=== PATIENT | female | born 1975 | race Two or more races ===

== ENCOUNTER 2017-11-23 01:51 | Inpatient (IN) | payer OTHER ==
[2017-11-23 02:36] LABS: Bilirubin Negative (Negative); Blood, Urine Negative (Negative); Clarity CLEAR (Clear); Glucose, Urine (Dipstick) Negative (Negative); Leukocyte Negative (Negative); Nitrite Negative (Negative); Protein, Urine (Dipstick) 30 mg/dL (Neg-Trace); Specific Gravity, Urine 1.028 (1.002-1.036); Urobilinogen 0.2 mg/dL (0.2-1.0)
[2017-11-23 02:39] LABS: Bacteria/HPF None Seen HPF (None Seen); Hyaline Casts/LPF 0-3 HYALINE CAST LPF (0-3 Hyaline); Pathc Cast-AUWi Flag 0.29 (0-2.49)
[2017-11-23 02:55] LABS: Pregnancy Test - Urine (BHCG) Negative (Negative); Pregu Control Background? CLEAR/WHITE (CLR/WHITE); Pregu Control Bar Appear? YES (CONTROL BAR); Specific Gravity 1.028 (1.002-1.036)
[2017-11-23 02:59] LABS: Hemoglobin 14.4 g/dL (12.0-16.0); Mean Corpuscular HGB CONC 33.7 g/dL (32.0-36.0); Mean Corpuscular Hemoglobin 30.7 pg (27.0-31.0); Mean Corpuscular Volume 91.1 fl (81.0-99.0); Mean Platelet Volume 7.6 fL (7.4-10.4); Platelet Count 274 thou/uL (130-400); RBC Distribution Width 13.2 % (11.5-14.5); Red Blood Cell (RBC) Count 4.68 mill/uL (4.20-5.40); White Blood Cell (WBC) Count 20.4 thou/uL (4.8-10.8)
[2017-11-23 03:11] LABS: Band 6 % (5-11); Eosinophils 1 % (0-10); Lymphocytes 35 % (21-51); MDiff Complete? YES; Monocytes 3 % (0-10); Neutrophil 46 % (42-75); PLT Morphology Comment Appears Adequate; RBC Morphology Normal; Reactive Lymphocytes 8 % (0-10)
[2017-11-23 03:15] LABS: ALT (SGPT) 14 U/L (8-55); AST (SGOT) 12 U/L (5-34); Albumin 4.2 g/dL (3.5-5.0); Alkaline Phosphatase 81 U/L (40-150); Anion Gap 12 mmol/L (10-20); BUN (Urea Nitrogen) 15 mg/dL (7.0-18.7); Bilirubin, Total 0.2 mg/dL (0.2-1.2); Calc. Creatinine Clearance 0 mL/min (70-130); Calcium 9.1 mg/dL (7.8-10.44); Carbon Dioxide 24 mmol/L (22-29); Chloride 104 mmol/L (98-107); Estimated GFR-MDRD 79; Globulin 2.7 g/dL (2.4-3.5); Glucose 105 mg/dL (70-105); Lipase 24 U/L (8-78); Potassium 3.5 mmol/L (3.5-5.1); Protein, Total 6.9 g/dL (6.0-8.3); Sodium 136 mmol/L (136-145)
[2017-11-23] MEDS ORDERED: Morphine 4 MG/ML VIAL ONE (03:27)
[2017-11-23] MEDS ORDERED: Pantoprazole 40 MG VIAL ONE (03:27)
[2017-11-23] MEDS ORDERED: Sodium Chloride 0.9% 1,000 ML IV SCH (06:16)
[2017-11-23] MEDS ORDERED: Ondansetron ODT 4 MG TAB SL PRN (06:16)
[2017-11-23] MEDS ORDERED: Ondansetron HCl/PF 4 MG/2 ML Vial IVP PRN ×2 (06:16→06:17)
[2017-11-23] MEDS ORDERED: Acetaminophen 325 MG TAB PO PRN (06:17)
--- NOTE | 2017-11-23 06:39 | HP ---
CHIEF COMPLAINT: Abdominal pain and diarrhea. HISTORY OF PRESENT ILLNESS: This is a 42-year-old young white female, morbidly obese. She has a kno history of irritable bowel syndrome, has been closely following up with GI. The patient has been having this chronic abdominal pain and bloating for almost a year. She also has a history of kidney stones was less than 7 mm in size and has been closely followed up by the urologist. The patient is having this pain of 7/10 intensity, located in the mid epigastrium for the last 2-3 days and today debra e noticed that there was caterina blood in the stool and that was the reason she came to the ER for furt her evaluation. The patient presented to the ER. She had a rectal examination done by the ER physic rosario who said the was stool was negative, guaiac was negative, but then she had another bowel movement in the ER which I did notice that she had caterina blood in the potty. As patient had elevated white count and a C. diff toxin was pending. Earlier in the week, 2 weeks ag o she also took a Z-SHIVANI course of 1 week. PAST MEDICAL HISTORY: 1. Irritable bowel syndrome. 2. Kidney stones. 3. Morbid obesity. PAST SURGICAL HISTORY: The patient had a cyst removed from her ovaries and she also had an ablation of her uterus for severe bleeding. SOCIAL HISTORY: The patient is a nonsmoker, but does not drink alcohol. No history of illicit drug use. FAMILY HISTORY: No significant family history of coronary artery disease. Her mother had breast can cer. ALLERGIES: No known drug allergies. HOME MEDICATIONS: No home medications were noted. REVIEW OF SYSTEMS: All 12 systems are reviewed with the patient thoroughly and found to be negative at this time. Constitutional: Weight loss or gain, ability to conduct usual activities. Skin: Rash, itching. Eyes: Double vision, pain. ENT/Mouth: Nose bleeding, neck stiffness, pain, tenderness. Cardiovascular: Palpitations, dyspnea on exertion, orthopnea. Respiratory: Shortness of breath, wheezing, cough, hemoptysis, fever or night sweats. Gastrointestinal: Poor appetite, abdominal pain, heartburn, nausea, vomiting, constipation, or diarrhea. Genitourinary: Urgency, frequency, dysuria, nocturia. Musculoskeletal: Pain, swelling. Neurologic/Psychiatric: Anxiety, depression. Allergy/Immunologic: Skin rash, bleeding tendency. PHYSICAL EXAMINATION: VITAL SIGNS: Blood pressures were 130/110, respiratory rate is 18, saturation 98%. GENERAL: The patient is moderately built and morbidly obese. She is alert and oriented x3. HEENT: Atraumatic, normocephalic. PERRLA. Extraocular movements are intact. Oral mucosa is pink an d moist. CARDIOVASCULAR: S1, S2 normal. No murmurs, rubs or gallops. LUNGS: Bilateral air entry was equal. No wheezing, no crackles. ABDOMEN: Distended, nontender, no guarding, no rebound tenderness. Bowel sounds were normal. MUSCULOSKELETAL: No calf tenderness. No pedal edema, no tenderness, no joint swelling. SKIN: No cyanosis, no erythema, no rash, no pallor. NEUROLOGIC: Cranial nerve examination II-XII intact. No focal deficits were noted. PSYCHIATRIC: No signs of radha was noted. NECK: No thyromegaly noted, no lymphadenopathy was noted. LABORATORY DATA: WBC 20.4, hemoglobin is 14.4, hematocrit 42.6, platelets 234. Sodium is 136, potas sium 3.5, chloride 104, bicarbonate is 24, BUN is 15, creatinine 0.8. ASSESSMENT AND PLAN: 1. Sepsis, unknown source. 2. Severe diarrhea, possible Clostridium difficile infection pending Clostridium difficile toxin ass ay. 3. Severe dehydration. 4. History of urinary tract stones. 5. Morbid obesity. PLAN: 1. Plan is to continue the patient on IV fluids at this time at 100 mL hour. We will closely monito r for any worsening dehydration. The patient has evidence of lower gastrointestinal bleed. We will consult Dr. Rick Lopez who the patient usually follows as outpatient. Her hemoglobin has bee n stable at 14. We will closely monitor for any further drop in the hemoglobin. We will keep the pa tient n.p.o. until the GI evaluation. 2. The patient has severe diarrhea with elevated white count. The patient has a history of taking o ral antibiotics a few weeks ago. So at this time, we will wait for the C. diff toxin assay and start the patient on treatment appropriate for Clostridium difficile infection. 3. The patient has history of urinary tract stones and she has been closely followed by Dr. [facility], at this time we will closely monitor. The patient does not have any abdominal pain related to t he renal colic. 4. Deep venous thrombosis prophylaxis, SCDs. Attending physician is Temo Mcdaniel M.D. I spent 75 minutes with this patient.
--- NOTE | 2017-11-23 08:59 | CT ---
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 Pt also reports blood in stool for past x3 days. States that on and thursday it appeared dark and tarry but tonight was bright red. Reports blo od in toilet and when she wipes. Last bm tonight. Pt also reports low back pain and chills. Denies fe belinda. Denies diarrhea. Denies pain or discomfort with urination. Pt has had a colonoscopy in the past, last one was "a while ago". She states that they did not find anything then but has been treated for ibs. TECHNIQUE: Axial computed tomography images of the abdomen and pelvis with intravenous contrast. Coronal reformatted images were created and reviewed. COMPARISON: No relevant prior studies available. FINDINGS: Lower thorax: No acute findings. ABDOMEN: Liver: Unremarkable. No mass. Gallbladder and bile ducts: Unremarkable. No calcified stones. No ductal dilation. Pancreas: Unremarkable. No mass. No ductal dilation. Spleen: Unremarkable. No splenomegaly. Adrenals: Unremarkable. No mass. Kidneys and ureters: Nonobstructive nephrolithiasis right kidney. Stomach and bowel: Fluid lumen of the colon is nondilated, compatible with diarrhea. No bowel wall th ickening or intestinal obstruction. Appendix: Normal appendix. PELVIS: Bladder: Unremarkable. No mass. Reproductive: 3.3 cm corpus luteum cyst of the right ovary. Indeterminate 1 cm low attenuation/cystic lesion in the uterus, nonspecific. ABDOMEN and PELVIS: Intraperitoneal space: Unremarkable. No free air. No significant fluid collection. Bones/joints: No acute fracture. No dislocation. Soft tissues: Unremarkable. Vasculature: Unremarkable. No abdominal aortic aneurysm. Lymph nodes: Unremarkable. No enlarged lymph nodes. IMPRESSION: 1. Fluid lumen of the colon is nondilated, compatible with diarrhea. 2. 3.3 cm corpus luteum cyst of the right ovary. 3. Indeterminate 1 cm low attenuation/cystic lesion in the uterus, nonspecific. Thank you for allowing us to participate in the care of your patient. Dictated and Authenticated by: Hair Rahman MD 11/23/2017 3:47 AM Central Time ([place] & [place]) FINAL REPORT EMERGENCY AFTER HOURS CT ABDOMEN AND PELVIS: Date: 11/23/17 INDICATION: History of generalized abdominal pain. FINDINGS: The small, enhancing lesions involving the lateral left hepatic lobe, as well as the anterior right h epatic lobe, are not appreciably changed from 2016, suspicious for possibly small hemangiomas. The la rgest is seen on image 20 of series 2, measuring 2.1 cm. There is a small focus of enhancement in seg ment 5 of right hepatic lobe, image 11, series 2. There is a small, bilobed suspected cyst within th e left hepatic lobe which appears similar. There is a 1.0 cm right adrenal adenoma, which is stable. There is a 3.0 mm nonobstructing calculus in the superior pole of the right kidney, which is stable. Pancreas, spleen, left adrenal gland, and left kidney appear within normal limits. As reported in the preliminary report, there is fluid density within the colon which can be seen with diarrheal states or mild colitis. The appendix is not definitely demonstrated. No definite free fluid is evident. Ther e is a suspected involuted cyst involving the right adnexa on image 57 of series 2 measuring 2.9 cm. No free fluid or enlarged lymph nodes are evident. IMPRESSION: 1. I agree with the preliminary report provided by Suzi that there is fluid density seen within the colon which can be seen with diarrheal states or mild colitis. 2. There is an involuting cyst within the right adnexa measuring up to 2.9 cm. A follow-up pelvic ul trasound in 6-8 weeks may be helpful to document resolution. 3. Small hyperenhancing lesions involving the left and right hepatic lobe, relatively stable since 2 016 and may reflect small hemangiomas. As a conservative measure, would recommend a [address] abdome n with and without contrast hemangioma protocol follow-up to document stability. 4. Stable left hepatic lobe cyst and right adrenal adenoma. 5. Stable right nephrolithiasis. CODE T. POS: [facility]
[2017-11-23 09:13] VITALS: BMI 36.0
[2017-11-23] MEDS: Famotidine/PF 20 mg/2ml Vial SLOW IVP SCH ×2 (09:33→20:59)
[2017-11-23] MEDS: Sodium Chloride 0.9% 1,000 ML IV SCH ×2 (09:36→15:36)
[2017-11-23] MEDS ORDERED: Haloperidol Lactate 5 MG/ML VIAL IM PRN (11:09)
[2017-11-23] MEDS ORDERED: Morphine 2 MG/ML SYRINGE SLOW IVP SCH (11:15)
[2017-11-23] MEDS: Nicotine 14 MG PATCH TOP SCH (11:24)
[2017-11-23] MEDS ORDERED: ISOVUE-370 76%-LOCM 1 ML ONE (13:08)
[2017-11-23] MEDS: HYDROcodone/Acetaminophen 5/325 mg Tablet PO PRN ×2 (16:12→21:15)
[2017-11-23] MEDS: Benzonatate 100 MG CAP PO SCH (20:58)
[2017-11-23] MEDS: busPIRone HCl 10 MG TAB PO SCH (20:59)
[2017-11-23] MEDS: Pregabalin 75 MG CAP PO SCH (20:59)
[2017-11-23] MEDS: traZODone HCl 50 MG TAB PO SCH (21:00)
[2017-11-24] MEDS: Sodium Chloride 0.9% 1,000 ML IV SCH ×3 (01:54→23:05)
[2017-11-24 05:26] LABS: #Basophils 0.1 thou/uL (0.0-0.2); #Eosinphils 0.7 thou/uL (0.0-0.7); #Lymphocytes 4.9 thou/uL (1.20-3.40); #Monocytes 0.6 thou/uL (0.11-0.59); #Neutrophils 5.1 thou/uL (1.40-6.50); %Eosinophils 6.1 % (0.0-10.0); %Lymphocytes 43.2 % (21.0-51.0); %Monocytes 5.2 % (0.0-10.0); %Neutrophils 44.5 % (42.0-75.0); Mean Corpuscular HGB CONC 32.6 g/dL (32.0-36.0); Mean Platelet Volume 7.5 fL (7.4-10.4); Platelet Count 279 thou/uL (130-400); RBC Distribution Width 13.4 % (11.5-14.5); Red Blood Cell (RBC) Count 4.66 mill/uL (4.20-5.40); White Blood Cell (WBC) Count 11.4 thou/uL (4.8-10.8)
[2017-11-24] MEDS: Benzonatate 100 MG CAP PO SCH ×2 (05:36→20:01)
[2017-11-24] MEDS: Fluticasone Propionate Nasal Spray 16 gm Bottle NASAL PRN ×2 (05:36→19:19)
[2017-11-24 05:44] LABS: Anion Gap 9 mmol/L (10-20); BUN (Urea Nitrogen) 7 mg/dL (7.0-18.7); Calc. Creatinine Clearance 166 mL/min (70-130); Calcium 8.5 mg/dL (7.8-10.44); Carbon Dioxide 21 mmol/L (22-29); Chloride 111 mmol/L (98-107); Estimated GFR-MDRD Greater than 90; Glucose 85 mg/dL (70-105); Potassium 3.9 mmol/L (3.5-5.1); Sodium 137 mmol/L (136-145)
--- NOTE | 2017-11-24 08:46 | CON ---
DATE OF CONSULTATION: 11/23/2017 REASON FOR CONSULTATION: Possible rectal bleeding, abdominal pain. HISTORY OF PRESENT ILLNESS: Ms. Thakkar is a 42-year-old female seen for about the last year or so. She presents with complaints of increased gas, bloating, and abdominal discomfort. She had an evalua tion with CAT scans and ultimately upper and lower endoscopy last year which were normal. She has be en maintained on Linzess and has done quite well. She presented to the hospital early this morning w ith some complaints of abdominal pain, diarrhea, and bleeding. In talking with her, this started las t . Four days prior to admission, she noted a little bit of blood in her stool and the liqui d in the bowl of water after she had a bowel movement. She also was having a little more cramping in the left lower abdomen, mainly complains of bloating. It appears about 2-3 days, she had some disco mfort 7/10 intensity in the midepigastrium but also in both right and left sides of the abdomen throu gh the emergency room and because she had some caterina blood in the stool, she was concerned about. Th ere has been no fever or chills. Apparently in the emergency room, she had a rectal examination whic h showed black negative stool. She had another stool with caterina blood in the bowl and was admitted. She did have elevated white count of 20,000. She was on Z-SHIVANI for respiratory pharyngeal symptoms b ut finished that. She states she has taken in the past with no problem. She had a CAT scan here of the abdomen and pelvis which showed no acute findings in the colon or small bowel. There is stable r ight nephrolithiasis, hepatic lobe cyst and right adrenal adenoma, which are chronic and unchanged fr om previous imaging in 2016. There was some bleeding cyst in the right adnexa. Presently, she feels fine. She states she got a little bit of morphine earlier. She is hungry. She states she thinks s he could eat. She is not nauseated. PAST MEDICAL HISTORY: Irritable bowel, kidney stones, morbid obesity. PAST SURGICAL HISTORY: Ovarian cyst in the past, uterine ablation for bleeding. SOCIAL HISTORY: Nonsmoker. Does drink alcohol at times. Does not use drugs. FAMILY HISTORY: Noncontributory. ALLERGIES: None known. HOME MEDICATIONS: She is on Linzess at home, trazodone, BuSpar, sertraline, Lyrica, methocarbamol, L atuda, diclofenac gel, cetirizine, Celebrex, albuterol. PRESENT MEDICATIONS: Pepcid, Tylenol, Flonase, Haldol p.r.n., hydrocodone p.r.n., nicotine patch, Zo shree. PHYSICAL EXAMINATION: GENERAL: Patient is resting comfortably in bed. She is in no distress. VITAL SIGNS: Temperature 98, pulse 101, blood pressure 109/75. LUNGS: Clear. CARDIAC: Heart regular, without clicks or murmurs. ABDOMEN: Soft, nontender. There is no rebound. There is no guarding. LABORATORY DATA: [place] [address] this morning, hemoglobin 14.4, platelet count 274. Comprehen sive metabolic profile was normal. ASSESSMENT AND PLAN: 1. Rectal bleeding, resolved. One worries about possibility of ischemic colitis or dehydration, but she does not have typical features of left-sided lower abdominal cramping. 2. Leukocytosis. No signs of sepsis or inflammatory response syndrome. 3. Diarrhea. She has been on antibiotics recently and C. diff should be checked. 4. Dehydration, go through rehydrating her, thus we will repeat CBC tomorrow. We will follow along with you.
[2017-11-24] MEDS: Pregabalin 75 MG CAP PO SCH ×2 (09:00→20:01)
[2017-11-24] MEDS: Lurasidone HCl 40 MG TABLET PO SCH (09:00)
[2017-11-24] MEDS: Famotidine/PF 20 mg/2ml Vial SLOW IVP SCH ×2 (09:02→20:05)
[2017-11-24] MEDS: busPIRone HCl 10 MG TAB PO SCH ×3 (09:02→20:01)
[2017-11-24] MEDS: HYDROcodone/Acetaminophen 5/325 mg Tablet PO PRN ×2 (09:19→21:00)
[2017-11-24] MEDS: Nicotine 14 MG PATCH TOP SCH ×2 (10:43→19:19)
--- NOTE | 2017-11-24 14:19 | PDOC.PN ---
- Subjective Encounter Start Date: 11/24/17 Encounter Start Time: 08:40 Pt seen for followup re: sepsis. Denies chest pain. Feels slightly better. Still has diarrhea, no blood in stool. - Objective Resuscitation Status: Resuscitation Status FULL:Full Resuscitation MAR Reviewed: Yes Vital Signs & Weight: Vital Signs (12 hours) Temp Pulse Resp BP BP Pulse Ox 11/24/17 11:29 98.4 F 83 18 124/85 11/24/17 08:51 98.8 F 83 18 117/79 94 L 11/24/17 08:00 98.8 F 83 18 94 L 11/24/17 04:59 98.8 F 83 20 127/76 95 Weight Admit Weight 210 lb 1.608 oz Weight 210 lb 1.608 oz I&O: 11/23/17 11/24/17 11/25/17 06:59 06:59 06:59 Intake Total 4350 Balance 4350 Result Diagrams: 11/24/17 04:58 11/24/17 04:58 Phys Exam - Physical Examination Obese HEENT: PERRLA, moist MMs, sclera anicteric, oral pharynx no lesions Neck: no nodes, no JVD, supple, full ROM Respiratory: no rales, no rhonchi, wheezing present Cardiovascular: RRR, no rub Gastrointestinal: soft, non-tender, no distention, positive bowel sounds Neurological: moves all 4 limbs Psychiatric: normal affect, A&O x 3 Dx/Plan (1) Sepsis Code(s): A41.9 - SEPSIS, UNSPECIFIED ORGANISM Status: Acute Comment: Improving (2) Diarrhea Code(s): R19.7 - DIARRHEA, UNSPECIFIED Status: Acute Comment: Continue IV fluids; GI following (3) Nephrolithiasis Status: Chronic Comment: stable (4) IBS (irritable bowel syndrome) Status: Chronic (5) Obesity Code(s): E66.9 - OBESITY, UNSPECIFIED Status: Chronic (6) Tobacco abuse Code(s): Z72.0 - TOBACCO USE Status: Chronic Comment: Chronic, continue nicotine replacement therapy - Plan * . Review of Systems - Review of Systems Constitutional: negative: fever, chills, sweats, weakness, malaise Respiratory: negative: Cough, Dry, Shortness of Breath, Hemoptysis, SOB with Excertion, Pleuritic Pain, Sputum, Wheezing Cardiovascular: negative: chest pain, palpitations, orthopnea, paroxysmal nocturnal dyspnea, edema, light headedness Gastrointestinal: Diarrhea. negative: Nausea, Vomiting, Abdominal Pain, Constipation, Melena, Hematochezia Genitourinary: negative: Dysuria, Frequency, Incontinence, Hematuria, Retention - Medications/Allergies Allergies/Adverse Reactions: Allergies Allergy/AdvReac Type Severity Reaction Status Date / Time No Known Allergies Allergy Unverified 11/23/17 06:16 Medications: Current Medications Acetaminophen (Tylenol) 650 mg PO Q4H PRN PRN Reason: Headache/Fever or Pain Hydrocodone Bitart/Acetaminophen ([place] 5/325) 1 tab PO Q4H PRN PRN Reason: Moderate Pain (4-6) Last Admin: 11/24/17 09:19 Dose: 1 tab Albuterol Sulfate (Proventil Hfa) 2 puff INH Q4H PRN PRN Reason: Cough Benzonatate (Tessalon) [address] [facility] Last Admin: 11/24/17 05:36 Dose: 100 mg Buspirone HCl (Buspar) [address] [facility] Last Admin: 11/24/17 09:02 Dose: 10 mg Famotidine (Pepcid) [address]P Q12[address] [facility] Last Admin: 11/24/17 09:02 Dose: 20 mg Fluticasone Propionate (Flonase Nasal [place]) 0 gm NASAL BIDPRN PRN PRN Reason: Allergies Last Admin: 11/24/17 05:36 Dose: 2 spr Haloperidol Lactate (Haldol) 5 mg IM Q6H PRN PRN Reason: PSYCHOSIS Sodium Chloride (Normal Saline 0.9%) 1,000 mls @ 100 mls/hr IV .Q10H [facility] Last Admin: 11/24/17 12:49 Dose: 1,000 mls Lurasidone HCl (Latuda) [address] [facility] Last Admin: 11/24/17 09:00 Dose: 40 mg Nicotine (Nicoderm Patch) [address] [facility] Last Admin: 11/24/17 10:43 Dose: 14 mg Ondansetron HCl (Zofran) 4 mg IVP Q6H PRN PRN Reason: Nausea/Vomiting Pregabalin (Lyrica) [address] [facility] Last Admin: 11/24/17 09:00 Dose: 75 mg Sertraline HCl (Zoloft) [address] [facility] Last Admin: 11/24/17 09:00 Dose: 50 mg Sodium Chloride (Flush - Normal Saline) [address] [facility] Last Admin: 11/24/17 09:21 Dose: Not Given Sodium Chloride (Flush - Normal Saline) 10 ml IVF PRN PRN PRN Reason: Saline Flush Trazodone HCl (Desyrel) [address] [facility] Last Admin: 11/23/17 21:00 Dose: 200 mg
[2017-11-24] MEDS: PROVENTIL INHALER 6.7 G (200 INHALATIONS) INH PRN (19:10)
[2017-11-24] MEDS: traZODone HCl 50 MG TAB PO SCH (20:05)
--- NOTE | 2017-11-24 20:53 | PRG ---
DATE OF SERVICE: 11/24/2017 SUBJECTIVE: Ms. Thakkar is eating a regular diet. She feels much better. She feels like gas in her stomach, but does not have any bleeding. She denies any fever or chills. She wants to eat regular f ood. OBJECTIVE: VITAL SIGNS: Temperature is 98, pulse 80, blood pressure 136/87. ABDOMEN: Protuberant, soft, nontender. There is no rebound. There is no guarding. LABORATORY STUDIES: White count is down from 20,000 to 11.4, hemoglobin 14.0, platelet counts 279. Differential is normal. BUN and creatinine are 7 and 0.67. ASSESSMENT: 1. Gastritis, resolved. Advance diet as tolerated. 2. Rectal bleeding, resolved, stable hemoglobin, no signs of significant GI blood loss. PLAN: Advance diet. She can go home tomorrow on a lactose-free low residue diet.
[2017-11-25] MEDS: Fluticasone Propionate Nasal Spray 16 gm Bottle NASAL PRN (01:28)
[2017-11-25 07:57] VITALS: BP 128/85; TEMP 99.1
[2017-11-25] MEDS: busPIRone HCl 10 MG TAB PO SCH (08:13)
[2017-11-25] MEDS: Famotidine/PF 20 mg/2ml Vial SLOW IVP SCH (08:13)
[2017-11-25] MEDS: Benzonatate 100 MG CAP PO SCH (08:13)
[2017-11-25] MEDS: Pregabalin 75 MG CAP PO SCH (08:14)
[2017-11-25] MEDS: Sodium Chloride 0.9% 1,000 ML IV SCH (08:14)
[2017-11-25] MEDS: HYDROcodone/Acetaminophen 5/325 mg Tablet PO PRN (08:20)
[2017-11-25] MEDS: Lurasidone HCl 40 MG TABLET PO SCH (08:25)
[2017-11-25 08:59] LABS: #Basophils 0.1 thou/uL (0.0-0.2); #Eosinphils 0.5 thou/uL (0.0-0.7); #Monocytes 0.6 thou/uL (0.11-0.59); #Neutrophils 7.8 thou/uL (1.40-6.50); %Basophils 0.5 % (0.0-1.0); %Eosinophils 4.3 % (0.0-10.0); %Lymphocytes 25.3 % (21.0-51.0); %Monocytes 5.2 % (0.0-10.0); %Neutrophils 64.8 % (42.0-75.0); Hemoglobin 14.1 g/dL (12.0-16.0); Mean Corpuscular HGB CONC 32.9 g/dL (32.0-36.0); Mean Corpuscular Hemoglobin 30.8 pg (27.0-31.0); Mean Corpuscular Volume 93.7 fl (81.0-99.0); Mean Platelet Volume 7.9 fL (7.4-10.4); Platelet Count 267 thou/uL (130-400); RBC Distribution Width 13.2 % (11.5-14.5); Red Blood Cell (RBC) Count 4.57 mill/uL (4.20-5.40)
[2017-11-25 09:12] LABS: Anion Gap 9 mmol/L (10-20); BUN (Urea Nitrogen) 8 mg/dL (7.0-18.7); Calc. Creatinine Clearance 157 mL/min (70-130); Carbon Dioxide 21 mmol/L (22-29); Chloride 108 mmol/L (98-107); Estimated GFR-MDRD Greater than 90; Glucose 89 mg/dL (70-105); Potassium 4.1 mmol/L (3.5-5.1); Sodium 134 mmol/L (136-145)
[2017-11-25] MEDS: PROVENTIL INHALER 6.7 G (200 INHALATIONS) INH PRN (09:18)
[2017-11-25] MEDS: Nicotine 14 MG PATCH TOP SCH (10:47)
[2017-11-25] MEDS ORDERED: Acetaminophen/Codeine 30-300mg Tablet PO PRN (10:50)
--- NOTE | 2017-11-25 11:11 | DIS ---
DATE OF ADMISSION: 11/23/2017 DATE OF DISCHARGE: 11/25/2017 PRIMARY CARE PHYSICIAN: Peyton Richards M.D. ADMITTING DIAGNOSES: 1. Diarrhea. 2. Rectal bleeding, resolved. 3. Dehydration. CONSULTATION DURING THIS HOSPITALIZATION: Gastroenterology, Dr. Lopez. CONDITION OF PATIENT ON THE DAY OF DISCHARGE: Stable. I assessed Ms. Thakkar on the day of discharge . She denies any chest pain or shortness of breath. Diarrhea is better. She denies any blood in st ool. PHYSICAL EXAMINATION: VITAL SIGNS: Stable. HEART: S1 and S2 are heard, regular. LUNGS: Clear to auscultation bilaterally. DISCHARGE MEDICATIONS: Tylenol #3 one tablet every 6 hours as needed, prescription for 15 tablets pr ovided, ProAir HFA 2 puffs every 4 hours as needed, buspirone 10 mg 3 times a day, cetirizine 10 mg d aily as needed, Bentyl 1 tablet 4 times a day as needed, Pepcid 20 mg 2 times a day, Linzess 2 capsul es daily, Latuda 40 mg daily, methocarbamol 1000 mg 2 times a day as needed, Nicoderm CQ 14 mg patch daily, Lyrica 75 mg 2 times a day, sertraline 50 mg daily, trazodone 100-200 mg at bedtime, and Dayna ivan 100 mg 3 times a day as needed. HOSPITAL COURSE: Ms. Thakkar is a pleasant 42-year-old lady who was admitted to [facility] for complaint of rectal bleeding as well as diarrhea. Her rectal bleeding resolved. St ool studies were negative for Clostridium difficile toxin. She was seen by Gastroenterology Service. She received intravenous fluids for dehydration. She improved clinically and is being discharged h [facility] in a stable condition. She is being discharged home on lactose free low residue diet. She is ad vised to follow up with her primary care physician in 3-5 days. LABORATORY DATA: On the day of discharge, she has sodium of 134, potassium 4.1, carbon dioxide 21, c reatinine 0.71, white count 12,000, hemoglobin 14.1, and platelet count 267,000. Many thanks for allowing me to participate in your patient's care. Please feel free to contact me wi th any questions or concerns. DISCHARGE DESTINATION: Home. TOTAL AMOUNT OF TIME SPENT COORDINATING THIS DISCHARGE: 33 minutes.
[2017-11-25] MEDS ORDERED: Famotidine 20 MG TAB PO SCH (21:00)
== END 2017-11-25 13:42 | disposition home or self-care (01) | DRG 392 ==
LOC: ERS 01:51 → T4-B 04:00
PROVIDERS: ADMIT Family Medicine; ATTEND Family Medicine
DX: K58.0 Irritable bowel syndrome with diarrhea (principal); E66.01 Morbid (severe) obesity due to excess calories; K62.5 Hemorrhage of anus and rectum; E86.0 Dehydration; K29.70 Gastritis, unspecified, without bleeding; Z68.36 Body mass index [BMI] 36.0-36.9, adult; D72.829 Elevated white blood cell count, unspecified; F17.210 Nicotine dependence, cigarettes, uncomplicated; N20.0 Calculus of kidney
CPT/HCPCS: 36415; 74177; 80048; 80053; 81003; 81015; 81025; 82274; 83605; 83690; 84145; 85025; 87324; 87449; 96361; 96374; 96375; 99406; A4216; C9113; J2270; S0028

== ENCOUNTER 2018-01-01 22:07 | Emergency (ER) | payer OTHER ==
[~2018-01-01 22:07] MED LIST: ISOVUE-370 76%-LOCM 1 ML ONE
[2018-01-01 22:47] LABS: #Basophils 0.1 thou/uL (0.0-0.2); #Eosinphils 0.4 thou/uL (0.0-0.7); #Lymphocytes 4.9 thou/uL (1.20-3.40); #Monocytes 0.9 thou/uL (0.11-0.59); #Neutrophils 8.6 thou/uL (1.40-6.50); %Basophils 0.7 % (0.0-1.0); %Eosinophils 2.7 % (0.0-10.0); %Lymphocytes 32.9 % (21.0-51.0); %Monocytes 6.1 % (0.0-10.0); %Neutrophils 57.6 % (42.0-75.0); Mean Corpuscular HGB CONC 34.7 g/dL (32.0-36.0); Mean Corpuscular Hemoglobin 31.8 pg (27.0-31.0); Mean Corpuscular Volume 91.5 fl (81.0-99.0); Mean Platelet Volume 7.4 fL (7.4-10.4); Platelet Count 279 thou/uL (130-400); Red Blood Cell (RBC) Count 4.73 mill/uL (4.20-5.40)
[2018-01-01 23:07] LABS: ALT (SGPT) 12 U/L (8-55); AST (SGOT) 12 U/L (5-34); Albumin 4.2 g/dL (3.5-5.0); Alkaline Phosphatase 86 U/L (40-150); Anion Gap 12 mmol/L (10-20); BUN (Urea Nitrogen) 17 mg/dL (7.0-18.7); Bilirubin, Total 0.3 mg/dL (0.2-1.2); Calc. Creatinine Clearance 0 mL/min (70-130); Calcium 9.3 mg/dL (7.8-10.44); Carbon Dioxide 27 mmol/L (22-29); Chloride 105 mmol/L (98-107); Estimated GFR-MDRD 85; Globulin 2.8 g/dL (2.4-3.5); Glucose 85 mg/dL (70-105); Lipase 14 U/L (8-78); Magnesium 2.1 mg/dL (1.6-2.6); Potassium 4.1 mmol/L (3.5-5.1); Sodium 140 mmol/L (136-145)
--- NOTE | 2018-01-01 23:31 | CT ---
ABDOMEN AND PELVIC CT SCAN WITH IV CONTRAST: 01/01/18 HISTORY: 42-year-old female with history of abdominal pain, particularly right lower quadrant pain. COMPARISON: 11/23/17. The lung bases are clear. There are two focal areas in the liver which show some nodular enhancement as well as a hypodense area in the left lobe. These are stable from prior studies. The gallbladder, p ancreas, spleen, adrenal glands are unremarkable. Nonobstructing right renal calculus. Nonobstructing small bilateral renal calculi. No evidence for acute obstruction. Normal appearing appendix. No b owel obstruction, abscess, adenopathy or abnormal fluid collection. Unremarkable uterus and adnexal r egions. IMPRESSION: Nonobstructing very small bilateral renal calculi. No evidence for obstruction. Normal appearing a ppendix. Multiple abnormal areas of attenuation within the liver which are stable from prior studies. No significant acute process in the abdomen or pelvis. POS: [facility]
[2018-01-01 23:44] LABS: Bilirubin Negative (Negative); Blood, Urine Negative (Negative); Clarity CLEAR (Clear); Glucose, Urine (Dipstick) Negative (Negative); Leukocyte Negative (Negative); Nitrite Negative (Negative); Protein, Urine (Dipstick) Negative (Neg-Trace); Specific Gravity, Urine 1.014 (1.002-1.036); Urobilinogen 0.2 mg/dL (0.2-1.0); pH, Urine 6.5 (5.0-9.0)
[2018-01-01 23:46] LABS: Pregnancy Test - Urine (BHCG) Negative (Negative); Pregu Control Background? CLEAR/WHITE (CLR/WHITE); Pregu Control Bar Appear? YES (CONTROL BAR); Specific Gravity 1.014 (1.002-1.036)
[2018-01-02] MEDS ORDERED: Ketorolac Tromethamine 30 MG/ML VIAL ONE (00:10)
[2018-01-02] MEDS ORDERED: Dicyclomine 20 MG TAB ONE (00:45)
== END 2018-01-02 01:50 | disposition home or self-care (01) ==
LOC: ERS 22:07
DX: R10.31 Right lower quadrant pain (principal); F41.9 Anxiety disorder, unspecified; F31.9 Bipolar disorder, unspecified; F17.210 Nicotine dependence, cigarettes, uncomplicated; Z79.899 Other long term (current) drug therapy
CPT/HCPCS: 36415; 74177; 80053; 81003; 81025; 83690; 83735; 85025; 96361; 96374; J1885

== ENCOUNTER 2018-11-13 20:00 | Emergency (ER) | payer OTHER ==
[2018-11-13 21:05] LABS: Bilirubin Small (Negative); Blood, Urine Negative (Negative); Clarity CLEAR (Clear); Glucose, Urine (Dipstick) Negative (Negative); Leukocyte Negative (Negative); Nitrite Negative (Negative); Protein, Urine (Dipstick) Trace mg/dL (Neg-Trace); Specific Gravity, Urine 1.028 (1.002-1.036)
[2018-11-13] MEDS ORDERED: Ibuprofen 800 MG TAB ONE (21:10)
[2018-11-13 21:12] LABS: Pregnancy Test - Urine (BHCG) Negative (Negative)
[2018-11-13 21:13] LABS: Pregu Control Background? CLEAR/WHITE (CLR/WHITE); Pregu Control Bar Appear? YES (CONTROL BAR); Specific Gravity 1.027 (1.002-1.036)
[2018-11-17 00:46] LABS: Chlamydia by PCR Not Detected (NotDetected); GC by PCR Not Detected (NotDetected)
== END 2018-11-13 21:21 | disposition home or self-care (01) ==
LOC: ERS 20:00
DX: N89.8 Other specified noninflammatory disorders of vagina (principal); K03.81 Cracked tooth; K02.9 Dental caries, unspecified; M19.90 Unspecified osteoarthritis, unspecified site; F31.9 Bipolar disorder, unspecified; F41.9 Anxiety disorder, unspecified; F17.210 Nicotine dependence, cigarettes, uncomplicated; Z71.6 Tobacco abuse counseling; Z79.51 Long term (current) use of inhaled steroids; Z79.899 Other long term (current) drug therapy
CPT/HCPCS: 81003; 81025; 87086; 87480; 87491; 87510; 87591; 87660; 99406

== ENCOUNTER 2018-12-16 18:41 | Emergency (ER) | payer OTHER ==
[2018-12-16] MEDS ORDERED: Morphine 4 MG/ML VIAL ONE (19:40)
[2018-12-16] MEDS ORDERED: Ketorolac Tromethamine 30 MG/ML VIAL ONE (19:40)
--- NOTE | 2018-12-16 20:14 | RAD ---
LUMBAR SPINE SERIES THREE VIEWS: History: Back and left leg pain. History of fibromyalgia. FINDINGS: Vertebral bodies are normal in height. Minimal osteophyte changes are seen. Disc spaces are fairly we ll preserved. Pedicles are intact. No spondylolisthesis. IMPRESSION: No acute findings. POS: [facility]
[2018-12-16 20:26] LABS: Anion Gap 13 mmol/L (10-20); BUN (Urea Nitrogen) 11 mg/dL (7.0-18.7); Calc. Creatinine Clearance 0 mL/min (70-130); Calcium 8.8 mg/dL (7.8-10.44); Carbon Dioxide 22 mmol/L (22-29); Chloride 108 mmol/L (98-107); Estimated GFR-MDRD 81; Glucose 89 mg/dL (70-105); Sodium 139 mmol/L (136-145)
[2018-12-16] MEDS ORDERED: Dexamethasone 4 mg/ml Vial ONE (20:43)
--- NOTE | 2018-12-16 21:26 | CT ---
EXAM: CT angiogram of the chest including 3-D rendering: HISTORY: Chest pain COMPARISON: None FINDINGS: There is adequate opacification of the pulmonary arteries. No evidence for aortic aneurysm or dissection. No convincing CT evidence for acute pulmonary embolism. No significant acute pulmonary parenchymal process. No evidence for mediastinal mass or adenopathy. No no evidence for pleural or pericardial effusion. Nodular enlargement of the right adrenal gland with a 1.4 cm diameter focal nodule, indeterminate, if that is a strong clinical concern, follow-up nonemergent CT scan with adrenal mass protocol. Left lobe liver cyst. IMPRESSION: No convincing CT evidence for acute pulmonary embolism. Nodular enlargement of the right adrenal gland as above. Left lobe of liver cyst.
== END 2018-12-16 21:50 | disposition home or self-care (01) ==
LOC: ERS 18:41
DX: M79.7 Fibromyalgia (principal); F17.210 Nicotine dependence, cigarettes, uncomplicated; F41.9 Anxiety disorder, unspecified
CPT/HCPCS: 36415; 71275; 72100; 80048; 85379; 93005; 96374; 96375; J1100; J1885; J2270; Q9966

== ENCOUNTER 2018-12-21 23:58 | Emergency (ER) | payer OTHER | END 2018-12-22 00:31 | disposition left against medical advice (07) | LOC: ERS 23:58 | DX: Z53.21 Procedure and treatment not carried out due to patient leaving prior to being seen by health care provider (principal) ==

== ENCOUNTER 2018-12-22 13:01 | Emergency (ER) | payer OTHER ==
[2018-12-22 13:29] LABS: #Basophils 0.1 thou/uL (0.0-0.2); #Eosinphils 0.1 thou/uL (0.0-0.7); #Monocytes 0.6 thou/uL (0.11-0.59); #Neutrophils 11.5 thou/uL (1.40-6.50); %Basophils 0.4 % (0.0-1.0); %Eosinophils 0.3 % (0.0-10.0); %Lymphocytes 24.3 % (21.0-51.0); %Monocytes 3.9 % (0.0-10.0); %Neutrophils 71.1 % (42.0-75.0); Hemoglobin 15.8 g/dL (12.0-16.0); Mean Corpuscular HGB CONC 33.8 g/dL (32.0-36.0); Mean Corpuscular Hemoglobin 30.6 pg (27.0-31.0); Mean Corpuscular Volume 90.4 fL (78.0-98.0); Mean Platelet Volume 7.9 fL (7.4-10.4); Platelet Count 301 thou/uL (130-400); RBC Distribution Width 12.9 % (11.5-14.5); Red Blood Cell (RBC) Count 5.16 mill/uL (4.20-5.40); White Blood Cell (WBC) Count 16.3 thou/uL (4.8-10.8)
[2018-12-22 13:49] LABS: ALT (SGPT) 12 U/L (8-55); AST (SGOT) 10 U/L (5-34); Albumin 4.4 g/dL (3.5-5.0); Alkaline Phosphatase 121 U/L (40-150); Anion Gap 12 mmol/L (10-20); BUN (Urea Nitrogen) 11 mg/dL (7.0-18.7); Bilirubin, Total 0.4 mg/dL (0.2-1.2); Calc. Creatinine Clearance 0 mL/min (70-130); Calcium 9.3 mg/dL (7.8-10.44); Carbon Dioxide 24 mmol/L (22-29); Chloride 104 mmol/L (98-107); Estimated GFR-MDRD 86; Globulin 3.1 g/dL (2.4-3.5); Glucose 101 mg/dL (70-105); Lipase 15 U/L (8-78); Potassium 3.9 mmol/L (3.5-5.1); Protein, Total 7.5 g/dL (6.0-8.3); Sodium 136 mmol/L (136-145)
[2018-12-22] MEDS ORDERED: Morphine 4 MG/ML VIAL ONE ×2 (15:09→17:22)
[2018-12-22] MEDS ORDERED: Ondansetron PF 4 MG/2 ML Vial ONE (15:10)
[2018-12-22 15:46] LABS: Bilirubin Negative (Negative); Blood, Urine Negative (Negative); Clarity CLEAR (Clear); Glucose, Urine (Dipstick) Negative (Negative); Leukocyte Negative (Negative); Nitrite Negative (Negative); Protein, Urine (Dipstick) Negative (Neg-Trace); Specific Gravity, Urine 1.017 (1.002-1.036); Urobilinogen 0.2 mg/dL (0.2-1.0); pH, Urine 6.5 (5.0-9.0)
--- NOTE | 2018-12-22 15:57 | ULT ---
Exam: Pelvic ultrasound HISTORY: Right lower quadrant pain for 3 days. COMPARISON: 04/21/2016 TECHNIQUE: Multiple grayscale and color Doppler images were obtained in a transabdominal and transvag inal pelvic ultrasound. Spectral analysis of the Doppler waveforms of the ovaries were performed. FINDINGS: CERVIX: Unremarkable UTERUS: Heterogeneous in appearance. There are 2 small anechoic cystic-appearing structure seen withi n the left aspect of uterus with one of the lesions seen within the uterine fundus and second within the uterine body and largest measuring 1.1 cm and unchanged when compared to prior exam in 201 6. The smaller lesion has a hypoechoic appearance and may represent a small uterine fibroid. Within the mid body of the uterus, there is an echogenic structure with associated cystic component measurin g 0.9 cm. This may represent partially necrotic uterine fibroid. ENDOMETRIAL STRIPE: 0.7 mm which is within normal limits for a normal menstruating female patient. No fluid or fluid collection is seen in the endometrial canal. No free fluid is present. RIGHT OVARY: There is a 1.9 cm anechoic structure associated with the right ovary likely due to a rig ht ovarian cyst. Venous flow is seen within the right ovary, but arterial flow was difficult to obtain which may be related to only thin mantle of tissue adjacent to the cyst. LEFT OVARY:Not visualized. Patient reports history of prior left oophorectomy. IMPRESSION: 1. Stable cystic appearing structures within the left aspect of the uterus which may represent either myometrial cysts or degenerating uterine fibroids. There is a new subcentimeter echogenic lesion seen within the mid body of the uterus which may represent a degenerating uterine fibroid. If indicat ed, MRI of the pelvis with and without IV contrast may be beneficial for further characterization and evaluation. 2. Nonvisualization left ovary likely related to patient's reported history of prior left oophorectom y. No left adnexal mass is seen. 2. Right ovarian cyst. Arterial flow is difficult to obtain in the right ovary which may be secondary to only a thin mantle of tissue surrounding the cyst limiting evaluation.
[2018-12-22] MEDS ORDERED: Ketorolac Tromethamine 30 MG/ML VIAL ONE (16:17)
[2018-12-22 16:34] LABS: BHCG - Serum Negative (NEGATIVE); Pregs Control Background? CLEAR/WHITE (CLR/WHITE); Pregs Control Bar Appear? YES (CONTROL BAR)
[2018-12-22] MEDS ORDERED: diphenhydrAMINE 50 MG/ML VIAL ONE (17:53)
--- NOTE | 2018-12-22 20:03 | CT ---
CT OF THE ABDOMEN AND PELVIS WITH IV CONTRAST 12/22/18 INDICATION: Right lower quadrant abdominal pain. COMPARISON: CT abdomen and pelvis dated 11/23/17 and 01/01/18. FINDINGS: Lung bases are clear. The small septated cyst within the left hepatic lobe is stable. 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 The pancreas and left adrenal gland are normal appearing. Right adrenal adenoma is stable. The kidney s are normal appearing. Spleen is normal appearing. There are scattered colonic diverticulosis. There is a normal appendix. There is fluid density seen within the cecum, ascending colon and transve rse colon. There is a fibroid uterus. No definite acute osseous abnormality is evident. IMPRESSION: 1. Fluid density within the right hemicolon may reflect a diarrheal state. Recommend correlatio n. Mild colitis can have a similar appearance. 2. Other stable chronic findings as above. POS: BH
== END 2018-12-22 18:18 | disposition home or self-care (01) ==
LOC: ERS 13:01
DX: N83.201 Unspecified ovarian cyst, right side (principal); D25.9 Leiomyoma of uterus, unspecified; G89.29 Other chronic pain; F17.210 Nicotine dependence, cigarettes, uncomplicated; F41.9 Anxiety disorder, unspecified; F32.9 Major depressive disorder, single episode, unspecified
CPT/HCPCS: 36415; 74177; 76856; 80053; 81003; 83605; 83690; 84703; 85025; 96361; 96374; 96375; 96376; J1200; J1885; J2270; J2405; Q9966

== ENCOUNTER 2019-03-10 21:13 | Emergency (ER) | payer OTHER ==
--- NOTE | 2019-03-10 22:43 | RAD ---
LEFT HAND THREE VIEWS: 03/10/19 HISTORY: Injury, left hand pain. FINDINGS/IMPRESSION: No fracture or dislocation is identified. POS: [facility]
[2019-03-10 22:59] LABS: Bacteria/HPF None Seen HPF (None Seen); Bilirubin Negative (Negative); Blood, Urine Negative (Negative); Clarity Clear (Clear); Glucose, Urine (Dipstick) Normal (Negative); Leukocyte 75 Leu/uL (Negative); Nitrite Negative (Negative); Protein, Urine (Dipstick) 20 mg/dL (Neg-Trace); WBC/HPF 0-3 HPF (0-3)
[2019-03-10 23:00] LABS: Pregnancy Test - Urine (BHCG) Negative (Negative); Pregu Control Background? CLEAR/WHITE (CLR/WHITE); Pregu Control Bar Appear? YES (CONTROL BAR); Specific Gravity 1.025 (1.002-1.036)
[2019-03-13 21:03] LABS: Chlamydia by PCR Not Detected (NotDetected); GC by PCR DETECTED (NotDetected)
== END 2019-03-10 23:10 | disposition home or self-care (01) ==
LOC: ERS 21:13
DX: N89.8 Other specified noninflammatory disorders of vagina (principal); M79.81 Nontraumatic hematoma of soft tissue; F41.9 Anxiety disorder, unspecified; F32.9 Major depressive disorder, single episode, unspecified; F17.210 Nicotine dependence, cigarettes, uncomplicated; M19.90 Unspecified osteoarthritis, unspecified site; M79.7 Fibromyalgia; Z79.899 Other long term (current) drug therapy
CPT/HCPCS: 81003; 81015; 81025; 87086; 87480; 87491; 87510; 87591; 87660

== ENCOUNTER 2019-03-11 15:22 | Emergency (ER) | payer OTHER ==
[2019-03-11] MEDS ORDERED: cefTRIAXone\\ROCEPHIN 250 MG VIAL ONE (15:59)
[2019-03-11] MEDS ORDERED: Azithromycin 250 MG TAB ONE (15:59)
[2019-03-11] MEDS ORDERED: Lidocaine 1% (PF) 30 ML VIAL ONE (16:01)
[2019-03-11] MEDS ORDERED: Lidocaine 1% PF 5 ML VIAL ONE (16:08)
== END 2019-03-11 16:47 | disposition home or self-care (01) ==
LOC: ERS 15:22
DX: A64 Unspecified sexually transmitted disease (principal); M19.90 Unspecified osteoarthritis, unspecified site; K58.9 Irritable bowel syndrome, unspecified; F41.9 Anxiety disorder, unspecified; F32.9 Major depressive disorder, single episode, unspecified; F17.210 Nicotine dependence, cigarettes, uncomplicated; Z79.899 Other long term (current) drug therapy
CPT/HCPCS: 96372; 99283; J0696; J2001

== ENCOUNTER 2019-03-28 14:48 | Outpatient (CLI) | payer OTHER ==
--- NOTE | 2019-03-28 16:07 | MMO ---
Bilateral MAMMO Bilat Screen [facility]. CLINICAL HISTORY: Patient is 44 years old and is seen for screening. The patient has the following family history of breast cancer: mother, at age 40. The patient has no personal history of cancer. VIEWS: The views performed were: bilateral craniocaudal and bilateral mediolateral oblique. FILMS COMPARED: The present examination has been compared to prior imaging studies performed at [facility] on 04/21/2016 and 06/12/2016. This study has been interpreted with the assistance of computer-aided detection. MAMMOGRAM FINDINGS: There are scattered fibroglandular densities. There are stable benign appearing calcifications seen in the left breast. There are no suspicious masses, suspicious calcifications, or new areas of architectural distortion. IMPRESSION: THERE IS NO MAMMOGRAPHIC EVIDENCE OF MALIGNANCY. A ROUTINE FOLLOW-UP MAMMOGRAM IN 1 YEAR IS RECOMMENDED. ACR BI-RADS Category 2 - Benign finding MAMMOGRAPHY NOTE: 1. A negative mammogram report should not delay a biopsy if a dominant of clinically suspicious mass is present. 2. Approximately 10% to 15% of breast cancers are not detected by mammography. 3. Adenosis and dense breasts may obscure an underlying neoplasm. Reported by: MIGUEL ANGEL FORDE MD Electonically Signed: [id number]
== END 2019-03-28 14:49 | disposition home or self-care (01) ==
LOC: SCSMAMMO 14:48
PROVIDERS: ATTEND Internal Medicine
DX: Z12.31 Encounter for screening mammogram for malignant neoplasm of breast (principal); Z80.3 Family history of malignant neoplasm of breast
CPT/HCPCS: 77067

== ENCOUNTER 2019-12-22 20:46 | Emergency (ER) | payer OTHER ==
[2019-12-22] MEDS ORDERED: Morphine 4 MG/ML VIAL ONE (21:52)
[2019-12-22] MEDS ORDERED: Dexamethasone 10 MG/ML VIAL ONE (21:53)
[2019-12-22] MEDS ORDERED: Ketorolac Tromethamine 30 MG/ML VIAL ONE (22:07)
== END 2019-12-22 22:43 | disposition home or self-care (01) ==
LOC: ERS 20:46
DX: M79.7 Fibromyalgia (principal); F41.9 Anxiety disorder, unspecified; F32.9 Major depressive disorder, single episode, unspecified; F17.210 Nicotine dependence, cigarettes, uncomplicated; K58.9 Irritable bowel syndrome, unspecified; M19.90 Unspecified osteoarthritis, unspecified site; Z79.899 Other long term (current) drug therapy
CPT/HCPCS: 96372; 99283; J1100; J1885; J2270

== ENCOUNTER 2020-02-09 18:25 | Emergency (ER) | payer OTHER ==
[2020-02-09] MEDS ORDERED: Diazepam 5 MG TAB ONE (19:19)
[2020-02-09] MEDS ORDERED: HYDROcodone/Acetaminophen 5/325 mg Tablet ONE (19:19)
== END 2020-02-09 19:25 | disposition home or self-care (01) ==
LOC: ERS 18:25
DX: G89.29 Other chronic pain (principal); M54.6 Pain in thoracic spine; M54.5 Low back pain; F41.9 Anxiety disorder, unspecified; F32.9 Major depressive disorder, single episode, unspecified; M19.90 Unspecified osteoarthritis, unspecified site; K58.9 Irritable bowel syndrome, unspecified; F17.210 Nicotine dependence, cigarettes, uncomplicated
CPT/HCPCS: 99283

== ENCOUNTER 2020-05-22 22:07 | Emergency (ER) | payer OTHER ==
[2020-05-22] MEDS ORDERED: Acetaminophen 500 MG TAB ONE (23:02)
[2020-05-23] MEDS ORDERED: Morphine 4 MG/ML VIAL ONE (00:09)
[2020-05-23] MEDS ORDERED: Ketorolac Tromethamine 30 MG/ML VIAL ONE (00:09)
[2020-05-23] MEDS ORDERED: Dexamethasone 10 MG/ML VIAL ONE (00:11)
== END 2020-05-23 00:43 | disposition home or self-care (01) ==
LOC: ERS 22:07
DX: M79.7 Fibromyalgia (principal); G89.29 Other chronic pain; F41.9 Anxiety disorder, unspecified; F32.9 Major depressive disorder, single episode, unspecified; F17.210 Nicotine dependence, cigarettes, uncomplicated; Z79.899 Other long term (current) drug therapy
CPT/HCPCS: 96374; 96375; J1100; J1885; J2270

== ENCOUNTER 2020-08-09 10:10 | Emergency (ER) | payer OTHER ==
[2020-08-09 17:13] LABS: SARS-CoV-2 MS2 Positive; SARS-CoV-2 N Gene Negative; SARS-CoV-2 S Gene Negative; SARS-CoV-2 by NAA Not Detected (NotDetected); SARS-CoV-2 orf1ab Negative
== END 2020-08-09 10:35 | disposition home or self-care (01) ==
LOC: ERS 10:10
DX: Z20.828 Contact with and (suspected) exposure to other viral communicable diseases (principal); J43.9 Emphysema, unspecified
CPT/HCPCS: 87635; 99283; U0003

== ENCOUNTER 2020-10-26 19:30 | Emergency (ER) | payer OTHER ==
[2020-10-26] MEDS ORDERED: Ibuprofen 800 MG TAB ONE (19:46)
--- NOTE | 2020-10-26 20:12 | RAD ---
EXAM: Chest PA and lateral: HISTORY: Injury. Pain. Trauma. COMPARISON: 11/18/2016 FINDINGS: Heart: Normal cardiac silhouette Aorta: Unremarkable Pulmonary vessels: Normal Costophrenic angles: Costophrenic angles are clear. Lungs: No consolidation or masses. Pneumothorax: No pneumothorax Osseous structures: No osseous abnormalities IMPRESSION: No acute cardiopulmonary process.
[2020-10-26] MEDS ORDERED: hydrOXYzine 25 MG TAB ONE (22:24)
== END 2020-10-26 22:28 | disposition home or self-care (01) ==
LOC: ERS 19:30
DX: S20.219A Contusion of unspecified front wall of thorax, initial encounter (principal); M79.7 Fibromyalgia; M19.90 Unspecified osteoarthritis, unspecified site; G47.00 Insomnia, unspecified; F17.210 Nicotine dependence, cigarettes, uncomplicated; W50.0XXA Accidental hit or strike by another person, initial encounter; Z79.899 Other long term (current) drug therapy
CPT/HCPCS: 71046

== ENCOUNTER 2021-07-10 23:15 | Emergency (ER) | payer OTHER ==
[2021-07-11] MEDS ORDERED: HYDROcodone/Acetaminophen 10/325 mg Tablet ONE (00:26)
== END 2021-07-11 00:47 | disposition home or self-care (01) ==
LOC: ERS 23:15
DX: M25.511 Pain in right shoulder (principal); F17.210 Nicotine dependence, cigarettes, uncomplicated; W22.8XXA Striking against or struck by other objects, initial encounter

== ENCOUNTER 2022-04-01 13:07 | Emergency (ER) | payer OTHER ==
[2022-04-01] MEDS ORDERED: diphenhydrAMINE 50 MG/ML VIAL ONE (14:32)
[2022-04-01] MEDS ORDERED: Famotidine/PF 20 mg/2ml Vial ONE (14:32)
[2022-04-01] MEDS ORDERED: methylPREDNISolone Sod Succ/PF 125 MG/2 ML VIAL ONE ×2 (14:32→14:33)
[2022-04-01 14:49] LABS: #Basophils 0.1 thou/uL (0.0-0.2); #Eosinphils 0.6 thou/uL (0.0-0.7); #Lymphocytes 4.3 thou/uL (1.20-3.40); #Monocytes 0.5 thou/uL (0.11-0.59); #Neutrophils 6.7 thou/uL (1.40-6.50); %Basophils 0.7 % (0.0-1.0); %Eosinophils 5.1 % (0.0-10.0); %Lymphocytes 35.3 % (21.0-51.0); %Monocytes 4.3 % (0.0-10.0); %Neutrophils 54.7 % (42.0-75.0); Hemoglobin 15.6 g/dL (12.0-16.0); Mean Corpuscular HGB CONC 33.7 g/dL (32.0-36.0); Mean Corpuscular Hemoglobin 31.3 pg (27.0-31.0); Mean Corpuscular Volume 92.8 fL (78.0-98.0); Platelet Count 221 thou/uL (130-400); RBC Distribution Width 12.5 % (11.5-14.5); White Blood Cell (WBC) Count 12.2 thou/uL (4.8-10.8)
[2022-04-01 15:07] LABS: ALT (SGPT) 16 U/L (8-55); AST (SGOT) 11 U/L (5-34); Albumin 4.1 g/dL (3.5-5.0); Alkaline Phosphatase 130 U/L (40-110); Anion Gap 14 mmol/L (10-20); BUN (Urea Nitrogen) 12 mg/dL (7.0-18.7); Bilirubin, Total 0.3 mg/dL (0.2-1.2); Calc. Creatinine Clearance 0 mL/min (70-130); Calcium 9.2 mg/dL (7.8-10.44); Carbon Dioxide 25 mmol/L (22-29); Chloride 105 mmol/L (98-107); Estimated GFR 91; Glucose 114 mg/dL (70-105); Lipase 16 U/L (8-78); Potassium 3.7 mmol/L (3.5-5.1); Protein, Total 7.1 g/dL (6.0-8.3); Sodium 140 mmol/L (136-145)
[2022-04-01] MEDS ORDERED: Ibuprofen 800 MG TAB ONE (16:17)
== END 2022-04-01 16:34 | disposition home or self-care (01) ==
LOC: ERS 13:07
DX: T78.40XA Allergy, unspecified, initial encounter (principal); R07.9 Chest pain, unspecified; F17.210 Nicotine dependence, cigarettes, uncomplicated; M79.7 Fibromyalgia; Z79.899 Other long term (current) drug therapy
CPT/HCPCS: 36415; 71045; 80053; 83690; 83880; 84484; 85025; 93005; 94760; 96374; 96375; J1200; J2930; S0028

== ENCOUNTER 2022-08-26 17:36 | Emergency (ER) | payer OTHER ==
[~2022-08-26 17:36] MED LIST changes: -ISOVUE-370 76%-LOCM 1 ML ONE; +Iopamidol-370 76% 500 ML 1 ML ONE
[2022-08-26 18:11] LABS: #Eosinphils 0.2 thou/uL (0.0-0.7); #Lymphocytes 4.7 thou/uL (1.20-3.40); #Monocytes 0.8 thou/uL (0.11-0.59); %Basophils 0.1 % (0.0-1.0); %Eosinophils 1.8 % (0.0-10.0); %Lymphocytes 40.4 % (21.0-51.0); %Monocytes 6.5 % (0.0-10.0); %Neutrophils 51.3 % (42.0-75.0); Hemoglobin 14.8 g/dL (12.0-16.0); Mean Corpuscular HGB CONC 34.6 g/dL (32.0-36.0); Mean Corpuscular Hemoglobin 31.8 pg (27.0-31.0); Mean Corpuscular Volume 91.8 fl (78.0-98.0); Mean Platelet Volume 9.1 fL (7.4-10.4); Platelet Count 236 10x3/uL (130-400); RBC Distribution Width 12.8 % (11.5-14.5); Red Blood Cell (RBC) Count 4.66 mill/uL (4.20-5.40); White Blood Cell (WBC) Count 11.7 10x3/uL (4.8-10.8)
[2022-08-26 18:44] LABS: ALT (SGPT) 17 U/L (8-55); AST (SGOT) 13 U/L (5-34); Alkaline Phosphatase 103 U/L (40-110); Anion Gap 14 mmol/L (10-20); BUN (Urea Nitrogen) 15 mg/dL (7.0-18.7); Bilirubin, Total 0.2 mg/dL (0.2-1.2); Calc. Creatinine Clearance 0 mL/min (70-130); Carbon Dioxide 20 mmol/L (22-29); Chloride 110 mmol/L (98-107); Estimated GFR 91; Globulin 2.6 g/dL (2.4-3.5); Glucose 116 mg/dL (70-105); Potassium 4.3 mmol/L (3.5-5.1); Protein, Total 6.6 g/dL (6.0-8.3); Sodium 140 mmol/L (136-145)
[2022-08-26 21:12] LABS: Bacteria/HPF 2+ HPF (None Seen); Bilirubin Negative (Negative); Blood, Urine Negative (Negative); Clarity Clear (Clear); Glucose, Urine (Dipstick) Normal (Negative); Ketone, Urine Negative (Negative); Leukocyte 250 Leu/uL (Negative); Mucous/LPF Rare LPF (<2+); Nitrite Negative (Negative); Protein, Urine (Dipstick) 10 mg/dL (Neg-Trace); Specific Gravity, Urine 1.028 (1.002-1.036); Urobilinogen Normal mg/dL (Less than 2); pH, Urine 6.5 (5.0-9.0)
[2022-08-26 21:29] LABS: Acetaminophen Less than 10.0 mcg/mL (10.0-30.0); Alcohol Less than 10 mg/dL (Less than 10); Salicylate Less than 8.0 mg/dL (15.0-30.0)
[2022-08-26] MEDS ORDERED: Ibuprofen 800 MG TAB ONE (22:40)
[2022-08-26] MEDS ORDERED: Acetaminophen 500 MG TAB ONE (22:40)
== END 2022-08-27 00:45 | disposition home or self-care (01) ==
LOC: ERS 17:36
DX: R07.9 Chest pain, unspecified (principal); E78.5 Hyperlipidemia, unspecified; I10 Essential (primary) hypertension; F17.210 Nicotine dependence, cigarettes, uncomplicated; Z79.899 Other long term (current) drug therapy
CPT/HCPCS: 36415; 71045; 71275; 80053; 80307; 81003; 81015; 84484; 85025; 85379; 93005; Q9967

== ENCOUNTER 2022-10-06 18:50 | Emergency (ER) | payer OTHER ==
[2022-10-06 19:29] LABS: Bilirubin Negative (Negative); Blood, Urine Negative (Negative); Clarity Clear (Clear); Glucose, Urine (Dipstick) Normal (Negative); Ketone, Urine Negative (Negative); Leukocyte 25 Leu/uL (Negative); Nitrite Negative (Negative); Pregnancy Test - Urine (BHCG) Negative (Negative); Pregu Control Background? CLEAR/WHITE (CLR/WHITE); Pregu Control Bar Appear? YES (CONTROL BAR); Protein, Urine (Dipstick) Negative (Neg-Trace); RBC/HPF 0-3 HPF (0-3); Specific Gravity 1.011 (1.002-1.036); Specific Gravity, Urine 1.011 (1.002-1.036); Squamous Epithelial 0-3 HPF (0-3); Transitional Epithelial 0-3 HPF (None Seen); Urobilinogen Normal mg/dL (Less than 2); WBC/HPF 0-3 HPF (0-3); pH, Urine 6.5 (5.0-9.0)
[2022-10-06 19:30] LABS: Bacteria/HPF Rare-Few HPF (None Seen)
[2022-10-06] MEDS ORDERED: Ketorolac Tromethamine 30 MG/ML VIAL ONE (19:39)
[2022-10-06] MEDS ORDERED: Aspirin Chewable 81 MG TAB ONE (19:39)
[2022-10-06 19:46] LABS: #Basophils 0.1 thou/uL (0.0-0.2); #Eosinphils 0.2 thou/uL (0.0-0.7); #Lymphocytes 4.5 thou/uL (1.20-3.40); #Monocytes 0.7 thou/uL (0.11-0.59); #Neutrophils 6.3 thou/uL (1.40-6.50); %Basophils 0.8 % (0.0-1.0); %Eosinophils 1.8 % (0.0-10.0); %Monocytes 6.1 % (0.0-10.0); %Neutrophils 53.2 % (42.0-75.0); Hemoglobin 14.1 g/dL (12.0-16.0); Mean Corpuscular Hemoglobin 31.8 pg (27.0-31.0); Mean Corpuscular Volume 90.9 fl (78.0-98.0); Mean Platelet Volume 9.1 fL (7.4-10.4); Platelet Count 222 10x3/uL (130-400); RBC Distribution Width 12.7 % (11.5-14.5); Red Blood Cell (RBC) Count 4.44 mill/uL (4.20-5.40); White Blood Cell (WBC) Count 11.8 10x3/uL (4.8-10.8)
[2022-10-06] MEDS ORDERED: Acetaminophen 500 MG TAB ONE (21:10)
== END 2022-10-06 21:20 | disposition home or self-care (01) ==
LOC: ERS 18:50
DX: R07.9 Chest pain, unspecified (principal); D72.829 Elevated white blood cell count, unspecified; E78.5 Hyperlipidemia, unspecified; I10 Essential (primary) hypertension; F17.210 Nicotine dependence, cigarettes, uncomplicated; Z79.899 Other long term (current) drug therapy
CPT/HCPCS: 71045; 81003; 81015; 81025; 84484; 85025; 93005; 96374; J1885

== ENCOUNTER 2022-12-22 01:12 | Emergency (ER) | payer OTHER | END 2022-12-22 02:18 | disposition home or self-care (01) | LOC: ERS 01:12 | DX: R51.9 Headache, unspecified (principal); T49.0X5A Adverse effect of local antifungal, anti-infective and anti-inflammatory drugs, initial encounter; E78.5 Hyperlipidemia, unspecified; I10 Essential (primary) hypertension; F17.210 Nicotine dependence, cigarettes, uncomplicated | CPT/HCPCS: 99284 ==

== ENCOUNTER 2023-05-18 21:14 | Emergency (ER) | payer OTHER ==
[2023-05-18] MEDS ORDERED: HYDROcodone/Acetaminophen 5/325 mg Tablet ONE (22:29)
== END 2023-05-19 00:17 | disposition home or self-care (01) ==
LOC: ERS 21:14
DX: M79.81 Nontraumatic hematoma of soft tissue (principal); I10 Essential (primary) hypertension; E78.5 Hyperlipidemia, unspecified; F17.210 Nicotine dependence, cigarettes, uncomplicated; Z79.899 Other long term (current) drug therapy
CPT/HCPCS: 76936; 93005

== ENCOUNTER 2024-02-18 16:00 | Outpatient (CLI) | payer OTHER | END 2024-02-18 16:01 | disposition home or self-care (01) | LOC: SLEEPLAB 16:00 | PROVIDERS: ATTEND Student in an Organized Health Care Education/Training Program | DX: G47.33 Obstructive sleep apnea (adult) (pediatric) (principal); R53.83 Other fatigue; R06.83 Snoring; E66.9 Obesity, unspecified; I10 Essential (primary) hypertension; Z68.41 Body mass index [BMI] 40.0-44.9, adult | CPT/HCPCS: 95800 ==

== ENCOUNTER 2025-07-20 13:21 | Outpatient (CLI) | payer MEDICAID | END 2025-07-20 13:22 | disposition home or self-care (01) | LOC: BICMAMMO 13:21 | PROVIDERS: ATTEND Family Medicine | DX: Z12.31 Encounter for screening mammogram for malignant neoplasm of breast (principal); Z80.3 Family history of malignant neoplasm of breast | CPT/HCPCS: 77063; 77067 ==

== ENCOUNTER 2025-07-26 08:27 | Emergency (ER) | payer MEDICAID ==
[2025-07-26] MEDS ORDERED: predniSONE 20 MG TAB ONE (10:20)
== END 2025-07-26 10:58 | disposition home or self-care (01) ==
LOC: ERS 08:27
DX: M79.7 Fibromyalgia (principal); I10 Essential (primary) hypertension
CPT/HCPCS: 96372; 99283; J2270; J7512

== ENCOUNTER 2025-08-29 16:05 | Emergency (ER) | payer MEDICAID ==
[2025-08-29 17:18] LABS: #Basophils 0.04 10x3/uL (0.0-0.2); #Eosinophils 0.14 10x3/uL (0.0-0.7); #Monocytes 0.62 10x3/uL (0.11-0.59); #Neutrophils 5.52 10x3/uL (1.40-6.50); %Basophils 0.4 % (0.0-1.0); %Eosinophils 1.3 % (0.0-10.0); %Lymphocytes 43.0 % (21.0-51.0); %Monocytes 5.6 % (0.0-10.0); %Neutrophils 49.4 % (42.0-75.0); Hematocrit 43.5 % (36.0-47.0); Hemoglobin 14.5 g/dL (12.0-16.0); Mean Corpuscular Hemoglobin 28.4 pg (27.0-31.0); Mean Corpuscular Volume 85.1 fL (78.0-98.0); Platelet Count 284 10x3/uL (130-400); Red Blood Cell (RBC) Count 5.11 mill/uL (4.20-5.40); White Blood Cell (WBC) Count 11.14 10x3/uL (4.8-10.8)
[2025-08-29 17:51] LABS: ALT (SGPT) 43 U/L (Less than 34); AST (SGOT) 39 U/L (11-34); Albumin 4.3 g/dL (3.1-4.5); Alkaline Phosphatase 161 U/L (40-110); Anion Gap 11 mmol/L (10-20); BUN (Urea Nitrogen) 16 mg/dL (7.0-18.7); Bilirubin, Total 0.3 mg/dL (0.3-1.2); Calc. Creatinine Clearance 0 mL/min (70-130); Calcium 9.6 mg/dL (7.8-10.44); Carbon Dioxide 26 mmol/L (22-29); Chloride 108 mmol/L (98-107); Globulin 3.2 g/dL (2.4-3.5); Glucose 102 mg/dL (70-105); Potassium 3.5 mmol/L (3.5-5.1); Sodium 141 mmol/L (136-145)
== END 2025-08-29 19:33 | disposition left against medical advice (07) ==
LOC: ERS 16:05
DX: Z53.21 Procedure and treatment not carried out due to patient leaving prior to being seen by health care provider (principal)
CPT/HCPCS: 36415; 71045; 80053; 84484; 85025; 93005